=== PATIENT | male | born 1955 | race Two or more races ===

== ENCOUNTER → 2022-05-16 | Outpatient (CLI) | payer MEDICAID ==
[2022-05-16 08:37] LABS: Basophils # (auto) 0 10 ^3/uL (0-0.2); Basophils % (auto) 0.6 % (0.0-2.0); Eosinophils # (auto) 0.2 10 ^3/uL (0-0.8); Eosinophils % (auto) 2.5 % (0.0-7.0); Hematocrit 33.2 % (41.0-53.0); Hemoglobin 11.3 g/dL (13.5-17.5); Lymphocytes # (auto) 2.3 10 ^3/uL (0.4-5.4); Lymphocytes % (auto) 38.1 % (10.0-50.0); Mean Corpuscular Hgb Conc. 33.9 g/dL (32.0-36.0); Mean Corpuscular Volume 88.5 fL (80.0-100.0); Monocytes # (auto) 0.6 10 ^3/uL (0-1.3); Monocytes % (auto) 9.9 % (0.0-12.0); Neutrophils % (auto) 48.9 % (37.0-80.0); Red Blood Cells 3.75 10^6/uL (4.5-5.90); White Blood Cell 6.2 10^3/uL (4.4-10.8)
[2022-05-16 09:19] LABS: Albumin 3.5 g/dL (3.4-5.0); Calcium 9.5 mg/dL (8.5-10.1); Potassium 4.1 mmol/L (3.5-5.1)
[2022-05-16 09:25] LABS: BUN/Creatinine Ratio 33.8; Bilirubin, Total 0.4 mg/dL (0.2-1.0); Free T4 (Free Thyroxine) 1.09 ng/dL (0.89-1.76); Total Protein 7.8 g/dL (6.4-8.2)
[2022-05-16 09:26] LABS: Free T3 2.57 pg/mL (2.3-4.2)
== END | disposition home or self-care (01) ==
LOC: LAB 08:25
PROVIDERS: ATTEND Internal Medicine
DX: I10 Essential (primary) hypertension (principal)
CPT/HCPCS: 36415; 80053; 80061; 84439; 84443; 84481; 85025

== ENCOUNTER → 2022-06-11 | Outpatient (CLI) | payer MEDICAID ==
[~2022-06-11] VITALS: Ht 144.8 cm; Wt 54.4 kg
[~2022-06-11] MED LIST: ADENOSINE 46 MG in GIVE UN-DILUTED 0 ML IV STA
== END | disposition home or self-care (01) ==
LOC: XYW 08:01
PROVIDERS: ATTEND Internal Medicine
DX: Z01.810 Encounter for preprocedural cardiovascular examination (principal); R07.89 Other chest pain; R06.02 Shortness of breath; I10 Essential (primary) hypertension; E11.9 Type 2 diabetes mellitus without complications; E78.5 Hyperlipidemia, unspecified; R55 Syncope and collapse; R42 Dizziness and giddiness; G47.33 Obstructive sleep apnea (adult) (pediatric)
CPT/HCPCS: 78452; 93017; A9500; J0153

== ENCOUNTER → 2022-06-24 | Outpatient (CLI) | payer MEDICAID | END | disposition home or self-care (01) | LOC: XYW 14:35 | PROVIDERS: ATTEND Internal Medicine | DX: I34.0 Nonrheumatic mitral (valve) insufficiency (principal); R07.89 Other chest pain | CPT/HCPCS: 93306 ==